=== PATIENT | male | born 2000 | race Caucasian/White ===

== ENCOUNTER 2018-11-19 19:00 | Emergency (ER) | payer SELFPAY ==
[2018-11-19] MEDS ORDERED: Ibuprofen 600 MG TAB ONE (19:36)
--- NOTE | 2018-11-19 20:04 | RAD ---
RIGHT HAND THREE VIEWS 11/19/18 HISTORY: Pain. Injured while playing basketball. COMPARISON: None. FINDINGS: dislocation of the right third digit at the level of the proximal interphalangeal joint space. Associ ated soft tissue swelling and deformity. Post reduction films are recommended. No additional areas of dislocation. IMPRESSION: Dislocation involving the third digit at the proximal interphalangeal joint space. Post reduction braxton ms are recommended. POS: PPP
--- NOTE | 2018-11-19 20:30 | RAD ---
RIGHT HAND THREE VIEWS 11/19/18 HISTORY: Interval reduction of previously noted dislocation. FINDINGS: Interval reduction of the third digit at the proximal interphalangeal joints. No evidence of fracture . There is associated soft tissue swelling. IMPRESSION: 1. Interval reduction. No fracture. 2. Posttraumatic soft tissue swelling. POS: PPP
== END 2018-11-19 20:19 | disposition home or self-care (01) ==
LOC: SCSER 19:00
DX: S63.282A Dislocation of proximal interphalangeal joint of right middle finger, initial encounter (principal); W23.0XXA Caught, crushed, jammed, or pinched between moving objects, initial encounter; Y93.67 Activity, basketball; Y99.8 Other external cause status
CPT/HCPCS: 26770